=== PATIENT | male | born 1995 | race Caucasian/White ===

== ENCOUNTER 2017-03-26 11:31 | Emergency (ER) | payer BC ==
[2017-03-26 11:59] VITALS: TEMP 99.3; O2SAT 97
--- NOTE | 2017-03-26 13:27 | EDPHY ---
H & P Time Seen by Provider: 03/26/17 13:27 HPI/ROS: Chief complaint. Vomiting and diarrhea HPI. 21-year-old male presents with 1 day history vomiting and diarrhea. His girlfriend is sick as well with same symptoms. They think it was from bed carrot juice. He has some abdominal cramping. No fever. No blood from either end. He has had his appendix out. No chest discomfort and no trouble breathing. Unable to keep fluids down ROS Constitutional. no fever/chills, no weakness Eyes. no problems with vision ENT. no sore throat, no nasal drainage Cardiovascular. no chest pain Respiratory. no shortness of breath, no cough Abdominal. Crampy abdominal pain with vomiting and diarrhea . no problems urinating MS. no calf pain/swelling, no neck/back pain, no joint pain Skin. no rash Lymph. no swollen glands Neuro. no headache, no dizziness, no difficulty walking or with speech Past Medical/Surgical History: Appendectomy Social History: Single, nonsmoker, no alcohol Smoking Status: Never smoked Physical Exam: General Appearance: Alert well-developed male mild distress vital signs show temp 37.4degrees. Initial blood pressure 91/72 though heart rate is 83 Eyes: Pupils equal and round no pallor or injection. ENT, mucous membranes are dry. Pharynx otherwise without injection Respiratory: There are no retractions, lungs are clear to auscultation. Cardiovascular: Regular rate and rhythm. Gastrointestinal: Abdomen is soft with really no abdominal tenderness. No masses. Normal bowel sounds Neurological: Awake and alert, sensory and motor exams grossly normal. Skin: Warm and dry, no rashes. Musculoskeletal: Neck is supple nontender. Extremities symmetrical, full range of motion. Psychiatric: Patient is oriented X 3, there is no agitation. Constitutional: Initial Vital Signs Temperature (C) 37.4 C 03/26/17 11:56 Heart Rate 83 03/26/17 11:56 Respiratory Rate 16 03/26/17 11:56 Blood Pressure 91/72 L 03/26/17 11:56 O2 Sat (%) 97 03/26/17 11:56 O2 Delivery Mode Nasal Cannula Allergies/Adverse Reactions: Penicillins Allergy (Verified 03/26/17 11:55) Home Medications: Medication Instructions Recorded Ondansetron Odt [Zofran Odt] 4 mg PO Q4PRN PRN #4 tab 03/26/17 Medical Decision Making Procedures: IV normal saline with initial target of 2 L. Zofran for nausea ED Course/Re-evaluation: Recheck at 3:00 p.m.. 1 L of fluid in. No urge to urinate. Slightly nauseated. Patient is just finishing his 2nd L on re-evaluation at 4:50 p.m.. He is taking oral fluids without vomiting. He will receive another L aunt and fluid until he urinates. Patient and I discussed treatment plan and labs, criteria for return and importance of follow-up and further evaluation. He expresses understanding and agreement Differential Diagnosis: This is likely gastroenteritis. His girlfriend had similar symptoms. I considered electrolyte abnormalities, cause of acute abdomen, dehydration - Data Points Laboratory Results: Laboratory Results 03/26/17 13:45 03/26/17 13:45 03/26/17 03/26/17 13:45 13:45 WBC 8.94 10^3/uL 10^3/uL (3.80-9.50) RBC 5.31 10^6/uL 10^6/uL (4.40-6.38) Hgb 16.7 g/dL g/dL (13.7-17.5) Hct 48.0 % % (40.0-51.0) MCV 90.4 fL fL (81.5-99.8) MCH 31.5 pg pg (27.9-34.1) MCHC 34.8 g/dL g/dL (32.4-36.7) RDW 11.9 % % (11.5-15.2) Plt Count 119 10^3/uL L 10^3/uL (150-400) MPV 9.6 fL fL (8.7-11.7) Neut % (Auto) 92.4 % H % (39.3-74.2) Lymph % (Auto) 3.4 % L % (15.0-45.0) [place] % (Auto) 3.8 % L % (4.5-13.0) Eos % (Auto) 0.0 % L % (0.6-7.6) Baso % (Auto) 0.2 % L % (0.3-1.7) Nucleat RBC Rel Count 0.0 % % (0.0-0.2) Absolute Neuts (auto) 8.26 10^3/uL H 10^3/uL (1.70-6.50) Absolute Lymphs (auto) 0.30 10^3/uL L 10^3/uL (1.00-3.00) Absolute Monos (auto) 0.34 10^3/uL 10^3/uL (0.30-0.80) Absolute Eos (auto) 0.00 10^3/uL L 10^3/uL (0.03-0.40) Absolute Basos (auto) 0.02 10^3/uL 10^3/uL (0.02-0.10) Absolute Nucleated RBC 0.00 10^3/uL 10^3/uL (0-0.01) Immature Gran % 0.2 % % (0.0-1.1) Immature Gran # 0.02 10^3/uL 10^3/uL (0.00-0.10) Sodium 142 mEq/L mEq/L (134-144) Potassium 4.3 mEq/L mEq/L (3.5-5.2) Chloride 103 mEq/L mEq/L (97-110) Carbon Dioxide 24 mEq/l mEq/l (22-31) Anion Gap 15 mEq/L mEq/L (8-16) BUN 20 mg/dL mg/dL (7-23) Creatinine 0.9 mg/dL mg/dL (0.7-1.3) Estimated GFR > 60 Glucose 98 mg/dL mg/dL (70-100) Calcium 9.9 mg/dL mg/dL (8.5-10.4) Medications Given: Discontinued Medications Sodium Chloride (Ns) 1,000 mls @ 0 mls/hr IV EDNOW ONE; Wide Open PRN Reason: Protocol Stop: 03/26/17 13:42 Last Admin: 03/26/17 13:58 Dose: 1,000 mls Sodium Chloride (Ns) 1,000 mls @ 0 mls/hr IV ONCE ONE; Wide Open PRN Reason: Protocol Stop: 03/26/17 13:42 Last Admin: 03/26/17 13:58 Dose: 1,000 mls Ondansetron HCl (Zofran) 4 mg IVP EDNOW ONE Stop: 03/26/17 13:42 Last Admin: 03/26/17 13:58 Dose: 4 mg Ondansetron HCl (Zofran) 4 mg IVP EDNOW ONE Stop: 03/26/17 15:07 Last Admin: 03/26/17 15:29 Dose: 4 mg Departure - Departure Disposition: Home, Routine, Self-Care Clinical Impression: Acute gastroenteritis, Dehydration Condition: Good Instructions: Gastroenteritis (ED), Loperamide (By mouth) Additional Instructions: Frequent, small sips fluids. Gradual diet advancement. Return for worsening abdominal pain, fever, vomiting or diarrhea. Zofran if needed for nausea and vomiting. Loperamide can be used for diarrhea if necessary. Recheck in 1-2 days if not continuing to improve Referrals: ZEE ALMARAZ [Other] - 2-3 days, if not improved Prescriptions: Ondansetron Odt [Zofran Odt] 4 mg PO Q4PRN PRN #4 tab PRN Reason: Nausea/Vomiting, Use 1st
[2017-03-26] MEDS ORDERED: NS 1,000 ML IV ONE ×2 (13:41)
[2017-03-26] MEDS ORDERED: ONDANSETRON 4 MG/2 ML VIAL IVP ONE ×2 (13:41→15:06)
[2017-03-26 13:51] LABS: % IMMATURE GRANULYOCYTES 0.2 % (0.0-1.1); ABSOLUTE IMMATURE GRANULOCYTES 0.02 10^3/uL (0.00-0.10); ADD DIFF? NO; ADD MORPH? NO; ADD SCAN? NO; ATYPICAL LYMPHOCYTE FLAG 0 (0-99); FRAGMENT RBC FLAG 0 (0-99); HEMOGLOBIN 16.7 g/dL (13.7-17.5); LEFT SHIFT FLG 0 (0-99); LIPEMIA HEMOLYSIS FLAG 90 (0-99); MEAN CELL HEMOGLOBIN 31.5 pg (27.9-34.1); MEAN CELL HEMOGLOBIN CONCENTR. 34.8 g/dL (32.4-36.7); MEAN CELL VOLUME 90.4 fL (81.5-99.8); MEAN PLATELET VOLUME 9.6 fL (8.7-11.7); PLATELET CLUMPS FLAG 0 (0-99); PLATELET COUNT 119 10^3/uL (150-400); RED BLOOD CELL COUNT 5.31 10^6/uL (4.40-6.38); RED CELL DISTRIBUTION WIDTH 11.9 % (11.5-15.2)
[2017-03-26 14:02] LABS: ANION GAP 15 mEq/L (8-16); CALCIUM 9.9 mg/dL (8.5-10.4); CARBON DIOXIDE 24 mEq/l (22-31); CHLORIDE 103 mEq/L (97-110); CREATININE 0.9 mg/dL (0.7-1.3); GLOMERULAR FILTRATION RATE > 60; GLUCOSE 98 mg/dL (70-100); POTASSIUM 4.3 mEq/L (3.5-5.2); SODIUM 142 mEq/L (134-144)
[2017-03-26 17:38] VITALS: BP 132/78; PULSE 94; RESP 18
== END 2017-03-26 17:37 | disposition home or self-care (01) ==
DX: K52.9 Noninfective gastroenteritis and colitis, unspecified (principal); E86.9 Volume depletion, unspecified; E86.0 Dehydration
CPT/HCPCS: 96374; J2405